=== PATIENT | male | born 1940 | race Caucasian/White ===

== ENCOUNTER → 2017-09-28 | Outpatient (CLI) | payer OTHER ==
[~2017-09-28] MED LIST: ASPI-1181 PO; ASPIRIN PO; CLOP75TA32 PO; DOXY100T2 PO; FURO40TA5 PO; HYDR-308 PO; LISI2.5T2 PO; METO-408 PO; NITR0.4T SL; POTA-79 PO; POTA20TA12 PO; PRED20TA3 PO; RANO500T2 PO; ROSU40 PO
== END | disposition home or self-care (01) ==
LOC: RAH 08:17
PROVIDERS: ATTEND Internal Medicine Cardiovascular Disease
DX: I71.4 Abdominal aortic aneurysm, without rupture (principal); I25.5 Ischemic cardiomyopathy
CPT/HCPCS: 76775; 93306

== ENCOUNTER 2017-10-09 07:20 | Observation (INO) | payer OTHER ==
[2017-10-08 09:56] VITALS: BP 90/52
[2017-10-08 10:04] LABS: BASOPHILS % (AUTO) 0.5 % (0.0-5.0); EOSINOPHILS % (AUTO) 4.7 % (0.0-8.0); HEMATOCRIT 49.8 % (42-54); LYMPHOCYTES % (AUTO) 23.6 % (21.0-51.0); MEAN CORPUSCULAR HEMOGLOBIN 31.2 pg (27.0-33.0); MEAN CORPUSCULAR HGB CONC 33.8 g/dL (32.0-36.0); MEAN CORPUSCULAR VOLUME 92.1 fL (79-99); MONOCYTES % (AUTO) 8.6 % (3.0-13.0); NEUTROPHILS % (AUTO) 62.6 % (40.0-77.0); PLATELET COUNT (AUTO) 271 K/uL (130-400); RED BLOOD CELL COUNT(AUTO) 5.41 MIL/uL (4.50-6.20); RED CELL DISTRIBUTION WIDTH 13.3 % (11.0-15.5); WHITE BLOOD COUNT (AUTO) 11.8 K/uL (4.8-10.8)
[2017-10-08 10:12] LABS: CREATININE 1.9 mg/dL (0.5-1.5); POTASSIUM 4.9 mmol/L (3.5-5.1)
[2017-10-08 10:15] LABS: INR 1.04 (0.85-1.15); PROTHROMBIN TIME 10.9 SEC (9.6-11.6)
[2017-10-09] VITALS (12 sets, daily range): BP systolic 84–115; BP diastolic 47–72
[~2017-10-09] VITALS: Ht 172.7 cm; Wt 89.5 kg
[~2017-10-09 07:20] MED LIST changes: -ASPIRIN PO; +CEFAZOLIN SODIUM 1 GM VIAL IVP SCH; -DOXY100T2 PO; -NITR0.4T SL; -POTA20TA12 PO; -PRED20TA3 PO
[2017-10-09] MEDS ORDERED: SODIUM CHLORIDE 0.9% 1000ML 1,000 ML IV ONE (08:26)
[2017-10-09] MEDS ORDERED: BUPIVACAINE/PF 0.25% 30ML VIAL IJ ONE (09:41)
[2017-10-09] MEDS ORDERED: ISOVUE-300 100 ML VIAL IV ONE (09:41)
[2017-10-09] MEDS ORDERED: CEFAZOLIN 1GM / D5W 50ML 150 ML ONE (09:41)
[2017-10-09] MEDS ORDERED: LIDOCAINE HCL 2% 20ML ONE (09:41)
[2017-10-09] MEDS ORDERED: LIDOCAINE HCL 1% 20 ML VIAL ONE (09:41)
[2017-10-09] MEDS ORDERED: MEPERIDINE-PF 25 MG/ML SYG ONE (09:52)
[2017-10-09] MEDS ORDERED: MIDAZOLAM HCL 1 MG/ML 2ML VIAL ONE (09:52)
[2017-10-09] MEDS ORDERED: HYDROCODONE/ACETAMINOPHEN 7.5/325 MG TAB PO PRN (11:15)
[2017-10-09] MEDS ORDERED: ACETAMINOPHEN-CODEINE 300/30MG TAB PO PRN (11:15)
[2017-10-09] MEDS ORDERED: ACETAMINOPHEN 325 MG TAB PO PRN (11:15)
[2017-10-09] MEDS ORDERED: ATORVASTATIN CALCIUM 40 MG TABLET PO SCH (21:00)
[2017-10-09] MEDS ORDERED: LISINOPRIL 2.5 MG TABLET PO SCH (21:00)
[2017-10-09] MEDS ORDERED: ASPIRIN 81 MG EC TAB PO SCH (21:00)
[2017-10-09] MEDS ORDERED: CLOPIDOGREL BISULFATE 75 MG TAB PO SCH (21:00)
[2017-10-09] MEDS: RANOLAZINE 500 MG TAB.SR.12H PO SCH (21:21)
[2017-10-10 03:29] VITALS: BP 90/51
[2017-10-10 07:58] VITALS: BP 90/54
[2017-10-10] MEDS: RANOLAZINE 500 MG TAB.SR.12H PO SCH (08:52)
[2017-10-10] MEDS ORDERED: **HM** TOPROL XL 25MG PO SCH (09:00)
[2017-10-10] MEDS ORDERED: FUROSEMIDE 40 MG TABLET PO SCH (09:00)
[2017-10-10] MEDS ORDERED: POTASSIUM CHLORIDE 20 MEQ ERTAB PO SCH (09:00)
[2017-10-10 11:39] VITALS: BP 101/52
== END 2017-10-10 12:00 | disposition home or self-care (01) ==
LOC: DAH 07:20 → DAHIP 07:21 → EDSTATUS 09:00 → 2AH 11:04
PROVIDERS: ADMIT Internal Medicine Cardiovascular Disease; ATTEND Internal Medicine Cardiovascular Disease
DX: I25.5 Ischemic cardiomyopathy (principal); I11.0 Hypertensive heart disease with heart failure; I50.22 Chronic systolic (congestive) heart failure; I25.10 Atherosclerotic heart disease of native coronary artery without angina pectoris; E78.5 Hyperlipidemia, unspecified; J44.9 Chronic obstructive pulmonary disease, unspecified; Z79.899 Other long term (current) drug therapy; Z95.1 Presence of aortocoronary bypass graft; Z95.5 Presence of coronary angioplasty implant and graft; Z82.49 Family history of ischemic heart disease and other diseases of the circulatory system; Z83.3 Family history of diabetes mellitus; Z87.891 Personal history of nicotine dependence; Z95.810 Presence of automatic (implantable) cardiac defibrillator
CPT/HCPCS: 33249; 36415; 71045; 80048; 85025; 85610; 85730; 93005; A4606; C1721; C1895 ×2; G0378 ×29; J0690; J2175; J2250; J3490 ×2; J7030; Q9967; 99156; 99157

== ENCOUNTER 2018-01-21 20:27 | Emergency (ER) | payer OTHER ==
[~2018-01-21 20:27] MED LIST changes: -CEFAZOLIN SODIUM 1 GM VIAL IVP SCH
[2018-01-21] MEDS ORDERED: ASPIRIN 325 MG TABLET ONE (20:43)
[2018-01-21 20:50] LABS: EOSINOPHILS % (AUTO) 5.6 % (0.0-8.0); HEMATOCRIT 45.8 % (42-54); LYMPHOCYTES % (AUTO) 25.2 % (21.0-51.0); MEAN CORPUSCULAR HEMOGLOBIN 32.4 pg (27.0-33.0); MEAN CORPUSCULAR HGB CONC 34.1 g/dL (32.0-36.0); MEAN CORPUSCULAR VOLUME 94.9 fL (79-99); MONOCYTES % (AUTO) 8.3 % (3.0-13.0); NEUTROPHILS % (AUTO) 59.9 % (40.0-77.0); PLATELET COUNT (AUTO) 217 K/uL (130-400); RED BLOOD CELL COUNT(AUTO) 4.83 MIL/uL (4.50-6.20); RED CELL DISTRIBUTION WIDTH 12.8 % (11.0-15.5); WHITE BLOOD COUNT (AUTO) 7.7 K/uL (4.8-10.8)
[2018-01-21 20:59] LABS: CREATININE 1.5 mg/dL (0.5-1.5); POTASSIUM 4.1 mmol/L (3.5-5.1)
[2018-01-21 21:05] LABS: PARTIAL THROMBOPLASTIN TIME 26.1 SEC (26.3-35.5)
[2018-01-21 21:09] LABS: BILIRUBIN,TOTAL 0.4 mg/dL (0.2-1.0); TOTAL PROTEIN, SERUM 6.4 g/dL (6.0-8.3)
[2018-01-21 21:15] LABS: INR 1.02 (0.85-1.15); PROTHROMBIN TIME 10.7 SEC (9.6-11.6)
== END 2018-01-22 01:57 | disposition home or self-care (01) ==
LOC: EDH 20:27
DX: R07.89 Other chest pain (principal); R94.31 Abnormal electrocardiogram [ECG] [EKG]; J44.9 Chronic obstructive pulmonary disease, unspecified; I50.9 Heart failure, unspecified; Z95.1 Presence of aortocoronary bypass graft; Z95.0 Presence of cardiac pacemaker; Z98.890 Other specified postprocedural states
CPT/HCPCS: 36415; 71045; 74176; 80053; 82550; 83874; 83880; 84484; 85025; 85610; 85730; 93005; 94761

== ENCOUNTER 2018-03-24 16:11 | Inpatient (IN) | payer OTHER ==
[~2018-03-24] VITALS: Ht 170.2 cm; Wt 89.9 kg
[~2018-03-24 16:11] MED LIST changes: -HYDR-308 PO; +HYDR-4458 PO
[2018-03-24] MEDS ORDERED: SODIUM CHLORIDE 0.9% 500 ML IV ONE (16:42)
[2018-03-24 16:50] LABS: BASOPHILS % (AUTO) 0.4 % (0.0-5.0); EOSINOPHILS % (AUTO) 2.3 % (0.0-8.0); HEMATOCRIT 46.7 % (42-54); LYMPHOCYTES % (AUTO) 25.4 % (21.0-51.0); MEAN CORPUSCULAR HEMOGLOBIN 31.6 pg (27.0-33.0); MEAN CORPUSCULAR HGB CONC 33.6 g/dL (32.0-36.0); NEUTROPHILS % (AUTO) 60.9 % (40.0-77.0); NUCLEATED RED BLOOD CELLS 0.1 % (0.0-0.19); PLATELET COUNT (AUTO) 199 K/uL (130-400); RED BLOOD CELL COUNT(AUTO) 4.97 MIL/uL (4.50-6.20); RED CELL DISTRIBUTION WIDTH 12.9 % (11.0-15.5); WHITE BLOOD COUNT (AUTO) 9.2 K/uL (4.8-10.8)
[2018-03-24 18:30] LABS: CREATININE 2.9 mg/dL (0.5-1.5)
[2018-03-24 18:34] LABS: ALBUMIN 3.1 g/dL (3.5-5.0); BILIRUBIN,TOTAL 0.7 mg/dL (0.2-1.0); TOTAL PROTEIN, SERUM 6.4 g/dL (6.0-8.3)
[2018-03-24 19:00] LABS: APPEARANCE,URINE SL CLOUDY (CLEAR); BILIRUBIN,URINE NEGATIVE (NEGATIVE); COLOR,URINE YELLOW (YELLOW); GLUCOSE, URINE (UA) NEGATIVE (NEGATIVE); KETONES,URINE NEGATIVE (NEGATIVE); LEUKOCYTE ESTERASE ,URINE NEGATIVE (NEGATIVE); NITRATE,URINE NEGATIVE (NEGATIVE); OCCULT BLOOD,URINE TRACE-LYSED (NEGATIVE); PH,URINE 5.5 (5.0-8.0); PROTEIN,URINE TRACE (NEGATIVE); UROBILINOGEN,URINE 0.2 mg/dL (0.2-1.0)
[2018-03-24 19:30] LABS: RBC,URINE None Seen /HPF (0-1)
[2018-03-24 19:31] LABS: BACTERIA,URINE Rare /HPF (None Seen); HYALINE CASTS, URINE 0-1 /LPF (0-1 /LPF); SQUAMOUS EPITHELIAL CELL,UR None Seen /HPF (0-2); WBC,URINE 0-1 /HPF (0-1)
[2018-03-24 19:32] LABS: AMORPHOUS SEDIMENT,UR Few /LPF (None Seen)
[2018-03-24 22:08] VITALS: BP 115/57
[2018-03-24 22:27] VITALS: BP 88/52
[2018-03-24 22:28] VITALS: BP_SYST 79; BP_SYST 89; BP_DIAS 49; BP_DIAS 58
[2018-03-24] MEDS ORDERED: ACETAMINOPHEN 325 MG TAB PO PRN (22:45)
[2018-03-24] MEDS ORDERED: ONDANSETRON HCL 4 MG/2 ML VIAL IV PRN (22:45)
[2018-03-25] VITALS (11 sets, daily range): BP systolic 81–102; BP diastolic 44–62
[2018-03-25] MEDS ORDERED: METO5TAB7 PO (00:49)
[2018-03-25] MEDS ORDERED: FURO40TA5 PO (00:49)
[2018-03-25 04:30] LABS: BASOPHILS % (AUTO) 0.6 % (0.0-5.0); HEMATOCRIT 44.3 % (42-54); LYMPHOCYTES % (AUTO) 27.6 % (21.0-51.0); MEAN CORPUSCULAR HEMOGLOBIN 32.4 pg (27.0-33.0); MEAN CORPUSCULAR HGB CONC 34.5 g/dL (32.0-36.0); MONOCYTES % (AUTO) 10.1 % (3.0-13.0); NEUTROPHILS % (AUTO) 59.7 % (40.0-77.0); PLATELET COUNT (AUTO) 159 K/uL (130-400); RED BLOOD CELL COUNT(AUTO) 4.72 MIL/uL (4.50-6.20); RED CELL DISTRIBUTION WIDTH 13.1 % (11.0-15.5); WHITE BLOOD COUNT (AUTO) 8.3 K/uL (4.8-10.8)
[2018-03-25 04:42] LABS: ALBUMIN 2.7 g/dL (3.5-5.0); BILIRUBIN,TOTAL 0.7 mg/dL (0.2-1.0); CREATININE 2.5 mg/dL (0.5-1.5); POTASSIUM 3.4 mmol/L (3.5-5.1); TOTAL PROTEIN, SERUM 5.7 g/dL (6.0-8.3)
[2018-03-25] MEDS ORDERED: SACU1TAB PO (09:55)
[2018-03-25] MEDS: SODIUM CHLORIDE 0.9% 1000ML 1,000 ML IV SCH (10:21)
[2018-03-25] MEDS: PANTOPRAZOLE SODIUM 40 MG TABLET.DR PO SCH (10:21)
[2018-03-25] MEDS: ENOXAPARIN SODIUM 30 MG/0.3 ML SQ SCH (10:21)
[2018-03-25] MEDS ORDERED: POTASSIUM CHLORIDE 20 MEQ ERTAB PO PRN (12:45)
[2018-03-25] MEDS ORDERED: LIDOCAINE HCL-MPF 1% 2ML VIAL IVP PRN (12:45)
[2018-03-25] MEDS ORDERED: POTASSIUM CHLORIDE 10% ELIXIR 20 MEQ/15 ML UDCUP PO PRN (12:45)
[2018-03-25] MEDS ORDERED: POTASSIUM CHLORIDE 10MEQ/100ML 100 ML IV PRN (12:45)
[2018-03-25] MEDS: **HM** ENTRESTO 24-26MG PO SCH (21:00)
[2018-03-25] MEDS: **HM** TOPROL XL 25MG PO SCH (21:00)
[2018-03-25] MEDS: CLOPIDOGREL BISULFATE 75 MG TAB PO SCH (21:01)
[2018-03-25] MEDS: RANOLAZINE 500 MG TAB.SR.12H PO SCH (21:01)
[2018-03-25] MEDS: ASPIRIN 81 MG EC TAB PO SCH (21:01)
[2018-03-25] MEDS: ATORVASTATIN CALCIUM 40 MG TABLET PO SCH (21:01)
[2018-03-25] MEDS ORDERED: POTASSIUM CHLORIDE 20MEQ/100ML 100 ML IV ONE (23:30)
[2018-03-25] MEDS ORDERED: POTASSIUM CHLORIDE 20MEQ/100ML 100 ML IV SCH (23:45)
[2018-03-25] MEDS ORDERED: POTASSIUM CHLORIDE 20 MEQ/100 ML BAG IV SCH (23:45)
[2018-03-26] VITALS (7 sets, daily range): BP systolic 87–137; BP diastolic 52–96
[2018-03-26 03:45] LABS: BASOPHILS % (AUTO) 0.5 % (0.0-5.0); EOSINOPHILS % (AUTO) 2.5 % (0.0-8.0); HEMATOCRIT 45.7 % (42-54); LYMPHOCYTES % (AUTO) 27.2 % (21.0-51.0); MEAN CORPUSCULAR HEMOGLOBIN 31.7 pg (27.0-33.0); MEAN CORPUSCULAR VOLUME 93.1 fL (79-99); MONOCYTES % (AUTO) 9.7 % (3.0-13.0); NEUTROPHILS % (AUTO) 60.1 % (40.0-77.0); NUCLEATED RED BLOOD CELLS 0.1 % (0.0-0.19); PLATELET COUNT (AUTO) 178 K/uL (130-400); RED BLOOD CELL COUNT(AUTO) 4.91 MIL/uL (4.50-6.20); RED CELL DISTRIBUTION WIDTH 13.1 % (11.0-15.5); WHITE BLOOD COUNT (AUTO) 8.9 K/uL (4.8-10.8)
[2018-03-26 04:02] LABS: CREATININE 2.2 mg/dL (0.5-1.5); POTASSIUM 3.7 mmol/L (3.5-5.1)
[2018-03-26] MEDS: RANOLAZINE 500 MG TAB.SR.12H PO SCH ×2 (08:11→20:38)
[2018-03-26] MEDS: PANTOPRAZOLE SODIUM 40 MG TABLET.DR PO SCH (08:11)
[2018-03-26] MEDS: ENOXAPARIN SODIUM 30 MG/0.3 ML SQ SCH (08:12)
[2018-03-26] MEDS: SODIUM CHLORIDE 0.9% 1000ML 1,000 ML IV SCH (08:12)
[2018-03-26] MEDS: **HM** TOPROL XL 25MG PO SCH ×2 (09:00→20:40)
[2018-03-26] MEDS ORDERED: FUROSEMIDE 40 MG TABLET PO SCH (09:00)
[2018-03-26] MEDS: **HM** ENTRESTO 24-26MG PO SCH (09:00)
[2018-03-26] MEDS ORDERED: PHARMACY COMMUNICATION MISC SCH (12:00)
[2018-03-26] MEDS: ASPIRIN 81 MG EC TAB PO SCH (20:37)
[2018-03-26] MEDS: ATORVASTATIN CALCIUM 40 MG TABLET PO SCH (20:37)
[2018-03-26] MEDS: CLOPIDOGREL BISULFATE 75 MG TAB PO SCH (20:38)
[2018-03-26] MEDS: ALBUMIN (HUMAN) 25% 50 ML IV SCH (20:39)
[2018-03-27] MEDS: SODIUM CHLORIDE 0.9% 1000ML 1,000 ML IV SCH (01:34)
[2018-03-27 04:11] LABS: CREATININE 1.8 mg/dL (0.5-1.5)
[2018-03-27 04:17] LABS: B-TYPE NATRIURETIC PEPTIDE 127 pg/mL (0-100); HEMATOCRIT 43.4 % (42-54); MEAN CORPUSCULAR HEMOGLOBIN 31.9 pg (27.0-33.0); MEAN CORPUSCULAR VOLUME 93.7 fL (79-99); PLATELET COUNT (AUTO) 146 K/uL (130-400); POTASSIUM 2.9 mmol/L (3.5-5.1); RED BLOOD CELL COUNT(AUTO) 4.63 MIL/uL (4.50-6.20); RED CELL DISTRIBUTION WIDTH 12.8 % (11.0-15.5); WHITE BLOOD COUNT (AUTO) 7.2 K/uL (4.8-10.8)
[2018-03-27 04:19] VITALS: BP 118/72
[2018-03-27 07:00] VITALS: BP 115/79
[2018-03-27] MEDS: **HM** TOPROL XL 25MG PO SCH ×2 (09:00→19:45)
[2018-03-27] MEDS: FUROSEMIDE 40 MG TABLET PO SCH (09:45)
[2018-03-27] MEDS: PANTOPRAZOLE SODIUM 40 MG TABLET.DR PO SCH (09:45)
[2018-03-27] MEDS: POTASSIUM CHLORIDE 20 MEQ ERTAB PO SCH ×4 (09:46→19:44)
[2018-03-27] MEDS: RANOLAZINE 500 MG TAB.SR.12H PO SCH ×2 (09:47→19:44)
[2018-03-27] MEDS: ALBUMIN (HUMAN) 25% 50 ML IV SCH (09:48)
[2018-03-27] MEDS: **HM** ENTRESTO 24-26MG PO SCH ×2 (09:49→19:46)
[2018-03-27] MEDS: ENOXAPARIN SODIUM 30 MG/0.3 ML SQ SCH (09:50)
[2018-03-27 11:00] VITALS: BP 98/56
[2018-03-27 16:00] VITALS: BP 115/69
[2018-03-27 19:27] VITALS: BP 97/57
[2018-03-27] MEDS: ASPIRIN 81 MG EC TAB PO SCH (19:44)
[2018-03-27] MEDS: ATORVASTATIN CALCIUM 40 MG TABLET PO SCH (19:45)
[2018-03-27] MEDS: CLOPIDOGREL BISULFATE 75 MG TAB PO SCH (19:45)
[2018-03-27] MEDS ORDERED: ALBUMIN (HUMAN) 25% 50 ML IV SCH (21:00)
[2018-03-27 23:19] VITALS: BP 100/52
[2018-03-28 04:10] LABS: HEMATOCRIT 44.5 % (42-54); MEAN CORPUSCULAR HEMOGLOBIN 32.2 pg (27.0-33.0); MEAN CORPUSCULAR HGB CONC 34.3 g/dL (32.0-36.0); MEAN CORPUSCULAR VOLUME 93.9 fL (79-99); PLATELET COUNT (AUTO) 184 K/uL (130-400); RED BLOOD CELL COUNT(AUTO) 4.74 MIL/uL (4.50-6.20); WHITE BLOOD COUNT (AUTO) 8.1 K/uL (4.8-10.8)
[2018-03-28 04:18] VITALS: BP 102/41
[2018-03-28 04:22] LABS: ALBUMIN 3.3 g/dL (3.5-5.0); CREATININE 2.1 mg/dL (0.5-1.5); MAGNESIUM 1.9 mg/dL (1.80-2.40); POTASSIUM 4.7 mmol/L (3.5-5.1)
[2018-03-28 04:57] LABS: B-TYPE NATRIURETIC PEPTIDE 112 pg/mL (0-100)
[2018-03-28 07:00] VITALS: BP 124/78
[2018-03-28] MEDS: **HM** TOPROL XL 25MG PO SCH (09:00)
[2018-03-28] MEDS: **HM** ENTRESTO 24-26MG PO SCH (09:00)
[2018-03-28] MEDS: PANTOPRAZOLE SODIUM 40 MG TABLET.DR PO SCH (09:56)
[2018-03-28] MEDS: FUROSEMIDE 40 MG TABLET PO SCH (09:56)
[2018-03-28] MEDS: RANOLAZINE 500 MG TAB.SR.12H PO SCH (09:56)
[2018-03-28] MEDS: ENOXAPARIN SODIUM 30 MG/0.3 ML SQ SCH (09:59)
[2018-03-28 11:00] VITALS: BP 101/66
== END 2018-03-28 12:25 | disposition home or self-care (01) | DRG 683 ==
LOC: EDH 16:11 → EDHIP 18:57 → 2DH 21:19
PROVIDERS: ADMIT Hospitalist; ATTEND Hospitalist
DX: N17.9 Acute kidney failure, unspecified (principal); I13.0 Hypertensive heart and chronic kidney disease with heart failure and stage 1 through stage 4 chronic kidney disease, or unspecified chronic kidney disease; I50.22 Chronic systolic (congestive) heart failure; I95.1 Orthostatic hypotension; E86.0 Dehydration; N18.9 Chronic kidney disease, unspecified; E87.6 Hypokalemia; I25.10 Atherosclerotic heart disease of native coronary artery without angina pectoris; E78.5 Hyperlipidemia, unspecified; I25.5 Ischemic cardiomyopathy; J44.9 Chronic obstructive pulmonary disease, unspecified; Z95.5 Presence of coronary angioplasty implant and graft; Z95.1 Presence of aortocoronary bypass graft; Z83.3 Family history of diabetes mellitus; Z82.49 Family history of ischemic heart disease and other diseases of the circulatory system; Z82.0 Family history of epilepsy and other diseases of the nervous system; Z83.6 Family history of other diseases of the respiratory system; Z80.9 Family history of malignant neoplasm, unspecified
CPT/HCPCS: 36415; 71045; 80048; 80053; 81001; 82040; 82550; 83735; 83880; 84132; 84484; 85025; 85027; 93005; 99291; J1650; J3480; J3490; J7030; P9047

== ENCOUNTER 2018-08-31 04:53 | Inpatient (IN) | payer OTHER | END 2018-09-06 14:25 | disposition home or self-care (01) | LOC: EDH 04:53 → EDHIP 06:50 → 2AH 08:35 | DX: I50.21 Acute systolic (congestive) heart failure (principal); J96.21 Acute and chronic respiratory failure with hypoxia; J18.9 Pneumonia, unspecified organism; J44.0 Chronic obstructive pulmonary disease with (acute) lower respiratory infection; I13.0 Hypertensive heart and chronic kidney disease with heart failure and stage 1 through stage 4 chronic kidney disease, or unspecified chronic kidney disease; N17.9 Acute kidney failure, unspecified; Z99.81 Dependence on supplemental oxygen; I25.5 Ischemic cardiomyopathy; E11.22 Type 2 diabetes mellitus with diabetic chronic kidney disease; N18.3 Chronic kidney disease, stage 3 (moderate) ==

== ENCOUNTER → 2020-03-12 | Outpatient (CLI) | payer OTHER ==
[~2020-03-12] MED LIST changes: -ASPI-1181 PO; +ASPI-1443 PO; +CARV3.1262 PO; +HYDR-4064 PO; -HYDR-4458 PO; +LEVO500T2 PO; -POTA-79 PO; +REGADENOSON 0.4 MG/5 ML PF SYG IVP SCH
== END | disposition home or self-care (01) ==
LOC: SHCH 08:08
PROVIDERS: ATTEND Internal Medicine Cardiovascular Disease
DX: I25.10 Atherosclerotic heart disease of native coronary artery without angina pectoris (principal)
CPT/HCPCS: 78452; 93017; A9500 ×2; J2785; 96374

== ENCOUNTER 2020-12-29 12:06 | Inpatient (IN) | payer OTHER ==
[~2020-12-29] VITALS: Ht 172.7 cm; Wt 70.3 kg
[~2020-12-29 12:06] MED LIST changes: +LISI2.5T13 PO; -LISI2.5T2 PO; -REGADENOSON 0.4 MG/5 ML PF SYG IVP SCH
[2020-12-29 12:10] VITALS: BP 94/38
[2020-12-29 12:52] LABS: BASOPHILS % (AUTO) 0.2 % (0.0-5.0); HEMATOCRIT 41.7 % (42-54); LYMPHOCYTES % (AUTO) 13.5 % (21.0-51.0); MEAN CORPUSCULAR HEMOGLOBIN 31.3 pg (27.0-33.0); MEAN CORPUSCULAR HGB CONC 32.4 g/dL (32.0-36.0); MEAN CORPUSCULAR VOLUME 96.5 fL (79-99); MONOCYTES % (AUTO) 19.6 % (3.0-13.0); NEUTROPHILS % (AUTO) 64.3 % (40.0-77.0); PLATELET COUNT (AUTO) 153 K/uL (130-400); RED BLOOD CELL COUNT(AUTO) 4.32 MIL/uL (4.50-6.20); RED CELL DISTRIBUTION WIDTH 12.6 % (11.0-15.5); WHITE BLOOD COUNT (AUTO) 4.5 K/uL (4.8-10.8)
[2020-12-29 13:01] LABS: CREATININE 1.7 mg/dL (0.5-1.5); INR 1.07 (0.85-1.15); POTASSIUM 4.1 mmol/L (3.5-5.1); PROTHROMBIN TIME 11.6 SEC (9.6-11.6)
[2020-12-29 13:03] LABS: PARTIAL THROMBOPLASTIN TIME 27.9 SEC (26.3-35.5)
[2020-12-29 13:05] LABS: BILIRUBIN,TOTAL 0.5 mg/dL (0.2-1.0); TOTAL PROTEIN, SERUM 6.1 g/dL (6.0-8.3)
[2020-12-29 13:18] LABS: B-TYPE NATRIURETIC PEPTIDE 226 pg/mL (0-100)
[2020-12-29 13:39] LABS: ABG BASE EXCESS 3.4 mmol/L (-2.0-3.0); ABG HCO3 29.7 mmol/L (21.0-28.0); ABG OXYGEN SATURATION 91.3 % (95.0-99.0); ABG PCO2 51 mmHg (35-48)
[2020-12-29] MEDS ORDERED: AZITHROMYCIN 250 MG TABLET PO SCH (14:00)
[2020-12-29] MEDS ORDERED: ALBUTEROL INHALER 90MCG/INH IH PRN (14:00)
[2020-12-29] MEDS ORDERED: CEFTRIAXONE 1G VIAL IVP SCH (14:00)
[2020-12-29] MEDS ORDERED: 0.9%NACL 50ML 50 ML IV ONE (14:45)
[2020-12-29 14:56] VITALS: BP 96/43
[2020-12-29] MEDS ORDERED: NITR0.4T50 SL (15:33)
[2020-12-29 15:57] VITALS: BP 108/67
[2020-12-29] MEDS ORDERED: ONDANSETRON 4MG INJ IV PRN (19:30)
[2020-12-29] MEDS ORDERED: ACETAMINOPHEN 325 MG TAB PO PRN ×2 (19:30)
[2020-12-29] MEDS ORDERED: LACTULOSE 20 GM/30 ML UDCUP PO PRN (19:30)
[2020-12-29 19:44] VITALS: BP 114/64
[2020-12-29] MEDS: CEFTRIAXONE 1G VIAL IV SCH (20:00)
[2020-12-29] MEDS ORDERED: ERGOCALCIFEROL (VITAMIN D2) 50,000 UNIT CAPSULE PO SCH (20:00)
[2020-12-29] MEDS: SOLU-MEDROL 125MG VIAL IV SCH (20:42)
[2020-12-29] MEDS: ASPIRIN 81 MG EC TAB PO SCH (20:42)
[2020-12-29] MEDS: FAMOTIDINE 20MG VIAL IV SCH (20:42)
[2020-12-29] MEDS: DOXYCYCLINE 100MG+NS 250ML 250 ML IV SCH (20:42)
[2020-12-29] MEDS: CLOPIDOGREL 75MG TAB PO SCH (20:43)
[2020-12-29] MEDS: ATORVASTATIN 40 MG TABLET PO SCH (20:43)
[2020-12-29] MEDS: CARVEDILOL 3.125 MG TABLET PO SCH (20:43)
[2020-12-29] MEDS: RANOLAZINE 500 MG TAB.SR.12H PO SCH (20:43)
[2020-12-29] MEDS ORDERED: FAMOTIDINE 20MG VIAL IV SCH (21:00)
[2020-12-29] MEDS: ENOXAPARIN SODIUM 40 MG/0.4 ML SYRINGE SQ SCH (21:34)
[2020-12-30] VITALS (8 sets, daily range): BP systolic 94–143; BP diastolic 49–76
[2020-12-30 05:27] LABS: EOSINOPHILS % (AUTO) 0.3 % (0.0-8.0); HEMATOCRIT 42.7 % (42-54); LYMPHOCYTES % (AUTO) 18.8 % (21.0-51.0); MEAN CORPUSCULAR HEMOGLOBIN 31.4 pg (27.0-33.0); MEAN CORPUSCULAR HGB CONC 32.3 g/dL (32.0-36.0); MONOCYTES % (AUTO) 6.3 % (3.0-13.0); NEUTROPHILS % (AUTO) 74.3 % (40.0-77.0); PLATELET COUNT (AUTO) 137 K/uL (130-400); RED CELL DISTRIBUTION WIDTH 12.5 % (11.0-15.5); WHITE BLOOD COUNT (AUTO) 3.2 K/uL (4.8-10.8)
[2020-12-30 05:41] LABS: ALBUMIN 2.8 g/dL (3.5-5.0); BILIRUBIN,TOTAL 0.4 mg/dL (0.2-1.0); CREATININE 1.8 mg/dL (0.5-1.5); CRP QUANTITATIVE 8.5 mg/L (0.00-9.0); POTASSIUM 5.5 mmol/L (3.5-5.1)
[2020-12-30] MEDS: DOXYCYCLINE 100MG+NS 250ML 250 ML IV SCH ×2 (07:42→20:04)
[2020-12-30] MEDS ORDERED: PHARMACY COMMUNICATION MISC SCH (08:30)
[2020-12-30] MEDS ORDERED: LISINOPRIL 2.5 MG TABLET PO SCH (09:00)
[2020-12-30] MEDS: RANOLAZINE 500 MG TAB.SR.12H PO SCH ×2 (12:01→21:36)
[2020-12-30] MEDS: FAMOTIDINE 20MG VIAL IV SCH (12:01)
[2020-12-30] MEDS: SOLU-MEDROL 125MG VIAL IV SCH ×2 (12:01→21:34)
[2020-12-30] MEDS: ASCORBIC ACID 500 MG TAB PO SCH (12:02)
[2020-12-30] MEDS: ZINC SULFATE 220 CAPSULE PO SCH (12:02)
[2020-12-30] MEDS: CARVEDILOL 3.125 MG TABLET PO SCH ×2 (12:03→21:35)
[2020-12-30] MEDS: ENOXAPARIN SODIUM 40 MG/0.4 ML SYRINGE SQ SCH ×2 (12:05→21:37)
[2020-12-30] MEDS ORDERED: REMDESIVIR (EUA) 520 200 MG in 0.9% NACL 250ML 250 ML IV ONE (15:00)
[2020-12-30 17:15] LABS: CREATININE 1.8 mg/dL (0.5-1.5); POTASSIUM 4.7 mmol/L (3.5-5.1)
[2020-12-30] MEDS: CEFTRIAXONE 1G VIAL IV SCH (20:04)
[2020-12-30] MEDS ORDERED: METOPROLOL SUCCINATE 50 MG TAB.SR.24H PO SCH ×2 (21:00)
[2020-12-30] MEDS: ATORVASTATIN 40 MG TABLET PO SCH (21:35)
[2020-12-30] MEDS: ASPIRIN 81 MG EC TAB PO SCH (21:35)
[2020-12-30] MEDS: CLOPIDOGREL 75MG TAB PO SCH (21:36)
[2020-12-30] MEDS: INSULIN HUMULIN R 100 UNIT/ML 3ML SQ SCH (21:49)
[2020-12-31 04:30] VITALS: BP 128/74
[2020-12-31 05:05] LABS: BASOPHILS % (AUTO) 0.1 % (0.0-5.0); HEMATOCRIT 46.8 % (42-54); LYMPHOCYTES % (AUTO) 9.5 % (21.0-51.0); MEAN CORPUSCULAR HEMOGLOBIN 31.5 pg (27.0-33.0); MEAN CORPUSCULAR HGB CONC 32.7 g/dL (32.0-36.0); MEAN CORPUSCULAR VOLUME 96.3 fL (79-99); MONOCYTES % (AUTO) 7.3 % (3.0-13.0); NEUTROPHILS % (AUTO) 82.4 % (40.0-77.0); PLATELET COUNT (AUTO) 226 K/uL (130-400); RED BLOOD CELL COUNT(AUTO) 4.86 MIL/uL (4.50-6.20); RED CELL DISTRIBUTION WIDTH 12.6 % (11.0-15.5); WHITE BLOOD COUNT (AUTO) 15.2 K/uL (4.8-10.8)
[2020-12-31 05:19] LABS: ALBUMIN 3.3 g/dL (3.5-5.0); BILIRUBIN,DIRECT 0.1 mg/dL (0.0-0.3); BILIRUBIN,TOTAL 0.3 mg/dL (0.2-1.0); CRP QUANTITATIVE 4.5 mg/L (0.00-9.0); POTASSIUM 4.7 mmol/L (3.5-5.1); TOTAL PROTEIN, SERUM 7.1 g/dL (6.0-8.3)
[2020-12-31] MEDS: INSULIN HUMULIN R 100 UNIT/ML 3ML SQ SCH ×4 (05:37→20:17)
[2020-12-31] MEDS: REMDESIVIR LABS MISC SCH (06:00)
[2020-12-31] MEDS: FAMOTIDINE 20MG VIAL IV SCH (08:27)
[2020-12-31] MEDS: DOXYCYCLINE 100MG+NS 250ML 250 ML IV SCH ×2 (08:27→20:07)
[2020-12-31] MEDS: SOLU-MEDROL 125MG VIAL IV SCH (08:27)
[2020-12-31] MEDS: ZINC SULFATE 220 CAPSULE PO SCH (08:28)
[2020-12-31] MEDS: RANOLAZINE 500 MG TAB.SR.12H PO SCH ×2 (08:28→20:08)
[2020-12-31] MEDS: ENOXAPARIN SODIUM 40 MG/0.4 ML SYRINGE SQ SCH ×2 (08:28→20:11)
[2020-12-31] MEDS: ASCORBIC ACID 500 MG TAB PO SCH (08:28)
[2020-12-31] MEDS: CARVEDILOL 3.125 MG TABLET PO SCH ×2 (08:28→20:08)
[2020-12-31 08:29] VITALS: BP 92/57
[2020-12-31] MEDS: FUROSEMIDE 40 MG TABLET PO SCH (09:00)
[2020-12-31 11:07] VITALS: BP 103/67
[2020-12-31] MEDS: DEXAMETHASONE 4 MG TAB PO SCH (12:23)
[2020-12-31] MEDS ORDERED: REMDESIVIR (EUA) 520 100 MG in 0.9% NACL 250ML 250 ML IV SCH (13:00)
[2020-12-31] MEDS ORDERED: [UNRECOGNIZED DRUG - REMARK] MISC STA (14:06)
[2020-12-31 16:47] VITALS: BP 117/59
[2020-12-31 20:00] VITALS: BP 109/62
[2020-12-31] MEDS: CEFTRIAXONE 1G VIAL IV SCH (20:07)
[2020-12-31] MEDS: ASPIRIN 81 MG EC TAB PO SCH (20:08)
[2020-12-31] MEDS: ATORVASTATIN 40 MG TABLET PO SCH (20:08)
[2020-12-31] MEDS: CLOPIDOGREL 75MG TAB PO SCH (20:10)
[2020-12-31 20:44] LABS: APPEARANCE,URINE Clear (CLEAR); BILIRUBIN,URINE Negative (NEGATIVE); COLOR,URINE Yellow (YELLOW); GLUCOSE, URINE (UA) 250 mg/dL (NEGATIVE); KETONES,URINE Negative (NEGATIVE); LEUKOCYTE ESTERASE ,URINE Negative (NEGATIVE); NITRATE,URINE Negative (NEGATIVE); OCCULT BLOOD,URINE Trace (NEGATIVE); PROTEIN,URINE Negative (NEGATIVE); UROBILINOGEN,URINE 0.2 mg/dL (0.2-1.0)
[2020-12-31 21:26] LABS: BACTERIA,URINE Few /HPF (None Seen); MUCUS,URINE Few LPF (None Seen); SQUAMOUS EPITHELIAL CELL,UR Rare /HPF (0-2); WBC,URINE 0-1 /HPF (0-1)
[2020-12-31 23:40] VITALS: BP 109/59
[2021-01-01] MEDS: Vitamin B Complex/Vit C/Folic Acid PO SCH ×2 (01:29→08:49)
[2021-01-01 04:00] VITALS: BP 113/55
[2021-01-01 06:11] LABS: HEMATOCRIT 41.4 % (42-54); MEAN CORPUSCULAR HEMOGLOBIN 31.5 pg (27.0-33.0); MEAN CORPUSCULAR HGB CONC 32.4 g/dL (32.0-36.0); MEAN CORPUSCULAR VOLUME 97.4 fL (79-99); RED BLOOD CELL COUNT(AUTO) 4.25 MIL/uL (4.50-6.20); RED CELL DISTRIBUTION WIDTH 12.8 % (11.0-15.5); WHITE BLOOD COUNT (AUTO) 8.9 K/uL (4.8-10.8)
[2021-01-01] MEDS: INSULIN HUMULIN R 100 UNIT/ML 3ML SQ SCH ×3 (06:16→16:55)
[2021-01-01 06:37] LABS: ALANINE AMINOTRANSFERASE 19 U/L (12-78); ASPARTATE AMINOTRANSFERASE 23 U/L (10-37); BILIRUBIN,TOTAL 0.3 mg/dL (0.2-1.0); CARBON DIOXIDE 29 mmol/L (21-32); CHLORIDE 102 mmol/L (101-111); GLOMERULAR FILTR. RATE CALC 34 mL/min (>60); GLUCOSE,RANDOM 220 mg/dL (70-105); PHOSPHORUS 4.4 mg/dL (2.5-4.9); POTASSIUM 4.2 mmol/L (3.5-5.1); SODIUM SERUM 141 mmol/L (136-145); TOTAL PROTEIN, SERUM 6.1 g/dL (6.0-8.3); UREA NITROGEN, BLOOD 52 mg/dL (7-18)
[2021-01-01 06:38] LABS: CRP QUANTITATIVE < 2.00 mg/L (0.00-9.0)
[2021-01-01] MEDS: REMDESIVIR LABS MISC SCH (07:34)
[2021-01-01 08:00] VITALS: BP 110/60
[2021-01-01] MEDS: DOXYCYCLINE 100MG+NS 250ML 250 ML IV SCH (08:48)
[2021-01-01] MEDS: RANOLAZINE 500 MG TAB.SR.12H PO SCH (08:48)
[2021-01-01] MEDS: DEXAMETHASONE 4 MG TAB PO SCH (08:48)
[2021-01-01] MEDS: ASCORBIC ACID 500 MG TAB PO SCH (08:48)
[2021-01-01] MEDS: ZINC SULFATE 220 CAPSULE PO SCH (08:49)
[2021-01-01] MEDS: FAMOTIDINE 20MG VIAL IV SCH (08:49)
[2021-01-01] MEDS: CARVEDILOL 3.125 MG TABLET PO SCH (08:49)
[2021-01-01] MEDS: ENOXAPARIN SODIUM 40 MG/0.4 ML SYRINGE SQ SCH (08:50)
[2021-01-01] MEDS: FUROSEMIDE 40 MG TABLET PO SCH (09:00)
[2021-01-01 12:00] VITALS: BP 109/64
[2021-01-01] MEDS ORDERED: PHARMACY COMMUNICATION MISC SCH ×2 (12:00→13:30)
[2021-01-01] MEDS ORDERED: DOXY100C5 PO (15:56)
[2021-01-01] MEDS ORDERED: GLIP5TAB11 PO (15:56)
[2021-01-01] MEDS ORDERED: DEXA6TAB PO (15:56)
[2021-01-01 16:00] VITALS: BP 135/73
== END 2021-01-01 17:50 | disposition home or self-care (01) | DRG 177 ==
LOC: EDH 12:06 → EEVIPCON 12:06 → EDHIP 19:05 → 4BH 12-30 09:41
PROVIDERS: ADMIT Internal Medicine; ATTEND Internal Medicine
PROC: XW033E5 Introduction of Remdesivir Anti-infective into Peripheral Vein, Percutaneous Approach, New Technology Group 5 (ICD-10-PCS; principal; 2020-12-30)
DX: U07.1 COVID-19 (principal); J12.82 Pneumonia due to coronavirus disease 2019; J96.01 Acute respiratory failure with hypoxia; N17.9 Acute kidney failure, unspecified; I50.22 Chronic systolic (congestive) heart failure; I13.0 Hypertensive heart and chronic kidney disease with heart failure and stage 1 through stage 4 chronic kidney disease, or unspecified chronic kidney disease; D68.59 Other primary thrombophilia; D72.810 Lymphocytopenia; I25.10 Atherosclerotic heart disease of native coronary artery without angina pectoris; J43.9 Emphysema, unspecified; E87.5 Hyperkalemia; N18.32 Chronic kidney disease, stage 3b; E78.5 Hyperlipidemia, unspecified; I25.5 Ischemic cardiomyopathy; Z87.891 Personal history of nicotine dependence; Z95.1 Presence of aortocoronary bypass graft; Z79.01 Long term (current) use of anticoagulants; Z83.3 Family history of diabetes mellitus; Z82.0 Family history of epilepsy and other diseases of the nervous system; Z82.49 Family history of ischemic heart disease and other diseases of the circulatory system; Z95.810 Presence of automatic (implantable) cardiac defibrillator
CPT/HCPCS: 36415; 36600; 71045; 76770; 80048; 80053; 80076; 81001; 82728; 82803; 82948; 83036; 83605; 83735; 83880; 84100; 84145; 84484; 85025; 85027; 85378; 85610; 85730; 86140; 87040; 87635; 87804; 87880; 93005; 93970; C9803; G0378; J0696; J1650; J1815; J2930; J3490; J7050; J8540